=== PATIENT | female | born 1960 | race Caucasian/White ===

== ENCOUNTER 2017-10-26 19:37 | Emergency (ER) ==
[2017-10-26 19:42] VITALS: BP 170/99; TEMP 98.6; BMI 25.0
[2017-10-26] MEDS ORDERED: TORADOL IM STA (20:04)
--- NOTE | 2017-10-26 20:45 | ED.PDOC ---
General ED Provider: Dr. IRENE HU Chief Complaint: Shoulder Pain/Injury Stated Complaint: Patient is a 57 year old female who comes to the ER stating that while at work lifting a package this Am started having pain on the right shoulder. Did not lift more that usual and lifted normally as she has been drained. Did not hear a POP. Now has pain with elevating arm beyond 90 degree angle. Time Seen by Physician: 20:00 Mode of Arrival: Walk-In Information Source: Patient Primary Care Provider: FAHAD ESCAMILLA Nursing and Triage Documentation Reviewed and Agree: Yes Reviewed sepsis parameters & appropriate labs ordered?: No System Inflammatory Response Syndrome: Not Applicable Sepsis Protocol: For patient's 13 years and over: Temp is 96.8 and below OR 101 and greater Pulse >90 BPM Resp >20/minute Acutely Altered Mental Status Are patient's symptoms suggestive of a new infection, such as: -Pneumonia -Skin, Soft Tissue -Endocarditis -UTI -Bone, Joint Infection -Implantable Device -Acute Abdominal Infection -Wound Infection -Meningitis -Blood Stream Catheter Infection -Unknown System Inflammatory Response Syndrome: Not Applicable Review of Systems - Review Of Systems Constitutional: Reports: No symptoms Eyes: Reports: No symptoms Ears, Nose, Mouth, Throat: Reports: No symptoms Respiratory: Reports: No symptoms Cardiac: Reports: No symptoms GI: Reports: No symptoms : Reports: No symptoms Musculoskeletal: Reports: Back pain, Joint pain Skin: Reports: No symptoms Neurological: Reports: Anxiety Endocrine: Reports: No symptoms Hematologic/Lymphatic: Reports: No symptoms All Other Systems: Reviewed and Negative Past Medical History - Past Medical History Previously Healthy: Yes Endocrine: Reports: None Cardiovascular: Reports: None Respiratory: Reports: None Hematological: Reports: None Gastrointestinal: Reports: None Genitourinary: Reports: None Neuro/Psych: Reports: None Musculoskeletal: Reports: None Cancer: Reports: None Last Menstrual Period: 1989 - Surgical History General Surgical History: Reports: Cholecystectomy - Family History Family History: Reports: Unknown - Social History Smoking Status: Never smoker Hx Substance Use: No Alcohol Screening: None - Immunizations Tetanus Shot up to Date: No Physical Exam - Physical Exam Appearance: Well-nourished Pain Distress: Moderate Neck: Supple Respiratory: Airway patent, Breath sounds clear, Breath sounds equal, Respirations nonlabored Cardiovascular: RRR, Pulses normal, No rub, No murmur GI/: Soft, Nontender, No masses, Bowel sounds normal, No Organomegaly Musculoskeletal: Normal strength, No edema, No calf tenderness, Limited ROM Skin: Warm, Dry, Normal color Neurological: Sensation intact, Motor intact, Reflexes intact, Cranial nerves intact, Alert, Oriented Psychiatric: Anxious Interpretation - Radiology Interpretation Radiology Interpretation By: ED Physician Radiology Results: Negative Exam Interpreted: Other (Right shoulder x ray ) Critical Care Note - Critical Care Note Total Time (mins): 0 Course - Course Orders, Labs, Meds: Orders Category Date Time Status Splint [ED SPLINT APPLICATION] .ONCE EMERGENCY 10/26/17 20:45 Active Ketorolac Tromethamine [Toradol] MEDS 10/26/17 20:04 Discontinued 60 mg IM ONCE STA SHOULDER, RIGHT MIN 2V Stat RADS 10/26/17 20:04 Completed Medications Discontinued Medications Generic Name Dose Route Start Last Admin Trade Name Freq PRN Reason Stop Dose Admin Ketorolac Tromethamine 60 mg 10/26/17 20:04 10/26/17 20:15 Toradol IM 10/26/17 20:05 60 mg ONCE STA Administration Vital Signs: Temp Pulse Resp BP Pulse Ox 10/26/17 19:38 98.6 F 60 18 170/99 H 98 Departure - Departure Time of Disposition: 20:44 Disposition: HOME SELF-CARE Discharge Problem: Shoulder pain Rotator cuff (capsule) sprain Qualifiers: Encounter type: initial encounter Laterality: right Qualified Code(s): S43.421A - Sprain of right rotator cuff capsule, initial encounter Instructions: Rotator Cuff Injury (ED) Condition: Fair Pt referred to PMD for follow-up: Yes IPMP verified?: No Additional Instructions: Rest, ICE Motrin as needed for pain Follow up with PCP or workman's comp Doctor for MRI and Therapy Prescriptions: Ibuprofen [Motrin] 600 mg PO Q6H PRN #30 tablet PRN Reason: Analgesia Tramadol HCl [Ultram] 50 mg PO Q6H PRN #20 tablet PRN Reason: Severe Pain Allergies/Adverse Reactions: Allergies No Known Allergies Allergy (Unverified 10/26/17 19:43) Home Medications: Ambulatory Orders Ibuprofen [Motrin] 600 mg PO Q6H PRN #30 tablet 10/26/17 Losartan Potassium [Cozaar] 25 mg PO DAILY 10/26/17 Tramadol HCl [Ultram] 50 mg PO Q6H PRN #20 tablet 10/26/17 Disposition Discussed With: Patient, Family
--- NOTE | 2017-10-27 07:52 | DI ---
EXAM: Three views of the right shoulder HISTORY: Shoulder pain after lifting injury. COMPARISON: None FINDINGS: There is no cortical irregularity or displaced fracture of the right shoulder. There is no lytic or blastic lesion. The acromioclavicular joint. Glenohumeral joint are normal. The soft tis sues are unremarkable. IMPRESSION: No acute abnormality or displaced fracture of the right shoulder.
== END 2017-10-26 20:54 | disposition home or self-care (01) ==
LOC: ED 19:37
DX: S43.421A Sprain of right rotator cuff capsule, initial encounter (principal); X50.9XXA Other and unspecified overexertion or strenuous movements or postures, initial encounter; Y99.0 Civilian activity done for income or pay
CPT/HCPCS: 96372; 99282

== ENCOUNTER 2018-01-08 08:59 | Outpatient (CLI) ==
--- NOTE | 2018-01-08 11:46 | MRI ---
EXAM: MRI of the right shoulder without contrast COMPARISON: Right shoulder radiographs 10/26/2017. HISTORY: Right shoulder pain following an injury. TECHNIQUE: Multiplanar noncontrast MR images of the right shoulder were acquired using a 1.2 Alesha m agnet. FINDINGS: There is marked supraspinatus and subscapularis tendinosis with mild infraspinatus tendino sis. Small partial-thickness/rim rent tear of the insertional fibers of the supraspinatus measuring 2 mm medial to lateral dimension. There is also thinning and bursal surface irregularity of the supr aspinatus more proximally at the level of the acromion measuring 0.8 x 0.5 cm extent related bursal s urface fraying/shallow partial-thickness bursal surface tear and involving approximately 25% of the t endon thickness. No full-thickness rotator cuff tear or tendon retraction. Small amount of fluid in the subacromial/subdeltoid bursa. Limited assessment glenoid labrum on this non arthrographic study with grossly unremarkable appearanc e of the labrum. No paralabral cyst. Mild degenerative changes of the glenohumeral joint without an acute fracture dislocation. Physiologic amount of fluid within the joint. The long head of the biceps is located within the bicipital groove and is intact. Moderate hypertrophic degenerative changes of the acromioclavicular joint with mild lateral downslopi ng of the acromion. No evidence of an os acromiale or abnormal widening of the acromioclavicular zhang nt space. No soft tissue mass identified. IMPRESSION: 1. Moderate to marked rotator cuff tendinosis. Bursal surface fraying/shallow partial-thickness bur ghada surface tear of the supraspinatus at the level of the acromion and addition to a small partial-th ickness/rim rent tear of the insertional fibers. No full-thickness rotator cuff tear or tendon retra ction. 2. Small amount of fluid in the subacromial/subdeltoid bursa. 3. Not hypertrophic degenerative changes of the acromioclavicular joint with mild lateral downslopin g of the acromion. 4. Mild degenerative changes of the glenohumeral joint.
== END 2018-01-08 09:00 | disposition home or self-care (01) ==
LOC: RAD 08:59
PROVIDERS: ATTEND Internal Medicine
DX: M25.511 Pain in right shoulder (principal); S43.421A Sprain of right rotator cuff capsule, initial encounter

== ENCOUNTER 2018-03-03 13:27 | Outpatient (CLI) ==
--- NOTE | 2018-03-05 07:34 | MAMMO ---
EXAM: Digital screening mammogram with 3-D tomosynthesis and CAD HISTORY: Screening mammogram COMPARISON: Mammogram 03/06/2015 FINDINGS: Bilateral CC and MLO views of the breasts were performed digitally and demonstrate scatter ed fibroglandular breast density. There is benign appearing calcified mass in the left breast. There is no new abnormal nodule or calcification. There is no significant interval change. IMPRESSION: No new or suspicious calcification or mass RECOMMENDATION: Annual screening mammogram BIRADS category II: Benign findings
== END 2018-03-03 13:28 | disposition home or self-care (01) ==
LOC: RAD 13:27
PROVIDERS: ATTEND Internal Medicine
DX: Z12.31 Encounter for screening mammogram for malignant neoplasm of breast (principal)
CPT/HCPCS: 77067